=== PATIENT | female | born 1940 | race Caucasian/White ===

== ENCOUNTER 2016-09-28 18:46 | Emergency (ER) | payer MEDICARE, BC ==
[~2016-09-28] VITALS: Ht 160 cm; Wt 77.2 kg
[~2016-09-28 18:46] MED LIST: /METO25TAB PO; /PANT40TA PO; /WARF25TA PO; ALTA10CA3 PO; AMBIEN PO; CHLO25TA3 PO; DRON40TA PO; SIMV10TA2 PO; VITA-122 PO; [UNRECOGNIZED DRUG - CODE] PO
[2016-09-28] MEDS ORDERED: COUM2TAB22 PO (19:13)
[2016-09-28] MEDS ORDERED: ZOLO25TA PO (19:13)
[2016-09-28] MEDS ORDERED: LEVO25TA5 PO (19:13)
[2016-09-28] MEDS ORDERED: WARF4TAB52 PO (19:13)
[2016-09-28] MEDS ORDERED: FLEET OIL RETENTION ENEMA PR PRN (20:45)
[2016-09-28] MEDS ORDERED: MAGNESIUM CITRATE 300 ML BTL PO ONE (22:00)
[2016-09-28 22:06] VITALS: BP 121/60
== END 2016-09-28 22:23 | disposition home or self-care (01) ==
LOC: M ED 18:46
DX: K59.00 Constipation, unspecified (principal); F41.9 Anxiety disorder, unspecified; Z95.2 Presence of prosthetic heart valve; Z88.1 Allergy status to other antibiotic agents; Z88.8 Allergy status to other drugs, medicaments and biological substances; Z79.899 Other long term (current) drug therapy

== ENCOUNTER 2016-11-14 14:19 | Outpatient (RCR) | payer MEDICARE, BC ==
[~2016-11-14 14:19] MED LIST changes: +COUM2TAB22 PO; +LEVO25TA5 PO; +WARF4TAB52 PO; +ZOLO25TA PO
== END 2016-11-20 ==
LOC: M CR 14:19
PROVIDERS: ATTEND Internal Medicine Cardiovascular Disease
DX: Z51.89 Encounter for other specified aftercare (principal); I34.1 Nonrheumatic mitral (valve) prolapse

== ENCOUNTER 2016-12-19 11:02 | Outpatient (RCR) | payer MEDICARE, BC | END 2016-12-20 | LOC: M CR 11:02 | PROVIDERS: ATTEND Internal Medicine Cardiovascular Disease | DX: Z51.89 Encounter for other specified aftercare (principal); I34.1 Nonrheumatic mitral (valve) prolapse ==

== ENCOUNTER 2017-01-02 11:13 | Outpatient (RCR) | payer MEDICARE, BC | END 2017-01-20 | LOC: M CR 11:13 | PROVIDERS: ATTEND Internal Medicine Cardiovascular Disease | DX: Z51.89 Encounter for other specified aftercare (principal); I34.1 Nonrheumatic mitral (valve) prolapse; Z95.2 Presence of prosthetic heart valve ==

== ENCOUNTER → 2017-06-04 | Outpatient (CLI) | payer MEDICARE, BC | LOC: M WHC 11:25 | DX: Z12.31 Encounter for screening mammogram for malignant neoplasm of breast (principal) | CPT/HCPCS: 77067 ==

== ENCOUNTER 2017-12-17 09:51 | Day surgery (SDC) | payer MEDICARE, BC ==
[2017-12-17] MEDS: NS 1,000 ML IV (06:00)
[2017-12-17] MEDS ORDERED: PROPOFOL 200 MG/20 ML VIAL As Ordered ×2 (10:00→11:31)
[2017-12-17] MEDS ORDERED: LIDOCAINE 2% INJ 100 MG/5 ML SDV (FOR ANES.) As Ordered (10:02)
== END 2017-12-17 12:08 | disposition home or self-care (01) ==
LOC: M OPP 09:51
DX: R19.5 Other fecal abnormalities (principal); K57.30 Diverticulosis of large intestine without perforation or abscess without bleeding; Q43.8 Other specified congenital malformations of intestine; I48.91 Unspecified atrial fibrillation; I10 Essential (primary) hypertension; E78.5 Hyperlipidemia, unspecified; M19.90 Unspecified osteoarthritis, unspecified site; F32.9 Major depressive disorder, single episode, unspecified; F41.9 Anxiety disorder, unspecified; G47.30 Sleep apnea, unspecified; Z86.79 Personal history of other diseases of the circulatory system; Z85.820 Personal history of malignant melanoma of skin; Z88.1 Allergy status to other antibiotic agents; Z88.8 Allergy status to other drugs, medicaments and biological substances; Z79.01 Long term (current) use of anticoagulants; Z79.899 Other long term (current) drug therapy
CPT/HCPCS: 45378

== ENCOUNTER → 2017-12-26 | Outpatient (CLI) | payer MEDICARE, BC ==
[2017-12-26 19:33] LABS: BASO # 0.1 10^3/uL (0.0-0.2); BASO % 0.9 % (0.0-1.0); EOS # 0.2 10^3/uL (0.0-0.50); EOS % 3.4 % (0.0-3.0); HEMATOCRIT 38.5 % (36.0-47.0); HEMOGLOBIN 12.2 g/dl (12.0-15.5); IMMATURE GRANULOCYTE % 0.4 % (0-3.0); LYMPH # 1.4 10^3/uL (1.5-4.5); MEAN CORPUSCULAR HEMOGLOBIN 29.5 pg (27.0-33.0); MEAN CORPUSCULAR HGB CONC 31.7 g/dl (32.0-36.5); MONO # 0.8 10^3/uL (0.0-0.8); MONO % 14.3 % (0.0-5.0); NEUTROPHILS # 2.9 10^3/uL (1.8-7.7); PLATELET COUNT, AUTOMATED 261 10^3/uL (150-450); RED BLOOD COUNT 4.14 10^6/uL (4.00-5.40); RED CELL DISTRIBUTION WIDTH 12.7 % (11.5-14.5); WHITE BLOOD COUNT 5.3 10^3/uL (4.0-10.0)
[2017-12-26 19:51] LABS: ALBUMIN 3.8 GM/DL (3.2-5.2); ALBUMIN/GLOBULIN RATIO 1.12 (1.00-1.93); ALKALINE PHOSPHATASE 103 U/L (45-117); ALT/SGPT 23 U/L (12-78); ANION GAP 6 MEQ/L (8-16); AST/SGOT 18 U/L (7-37); BILIRUBIN,TOTAL 0.3 MG/DL (0.2-1.0); BLOOD UREA NITROGEN 20 MG/DL (7-18); CALCIUM LEVEL 8.8 MG/DL (8.8-10.2); CARBON DIOXIDE LEVEL 31 MEQ/L (21-32); CHLORIDE LEVEL 100 MEQ/L (98-107); CREATININE FOR GFR 0.79 MG/DL (0.55-1.30); GLOMERULAR FILTRATION RATE > 60.0 (>39); GLUCOSE, FASTING 84 MG/DL (70-100); NT-PRO BNP 260 PG/ML (<450); POTASSIUM SERUM 4.4 MEQ/L (3.5-5.1); SODIUM LEVEL 137 MEQ/L (136-145); TOTAL PROTEIN 7.2 GM/DL (6.4-8.2)
== END ==
LOC: M WUC 11:08
DX: M41.86 Other forms of scoliosis, lumbar region (principal); R06.02 Shortness of breath; Z95.0 Presence of cardiac pacemaker
CPT/HCPCS: 80053

== ENCOUNTER 2020-07-31 15:42 | Emergency (ER) | payer MEDICARE, BC ==
[~2020-07-31] VITALS: Ht 160 cm; Wt 81.8 kg
[~2020-07-31 15:42] MED LIST changes: -DILT180C28 PO
[2020-07-31 15:43] VITALS: BP 177/78
[2020-07-31] MEDS ORDERED: DILT180C28 PO (15:51)
== END 2020-07-31 18:56 | disposition left against medical advice (07) ==
LOC: M ED 15:42
DX: R05 Cough (principal); Z53.21 Procedure and treatment not carried out due to patient leaving prior to being seen by health care provider; R06.02 Shortness of breath; T17.208A Unspecified foreign body in pharynx causing other injury, initial encounter; Z79.01 Long term (current) use of anticoagulants; Z79.899 Other long term (current) drug therapy; Z88.1 Allergy status to other antibiotic agents; Z88.8 Allergy status to other drugs, medicaments and biological substances

== ENCOUNTER → 2020-07-31 | Outpatient (CLI) | payer MEDICARE, BC ==
[~2020-07-31] MED LIST changes: -/METO25TAB PO; -/PANT40TA PO; -/WARF25TA PO; +CHLO25TA PO; +COUM1TAB18 PO; +COUM1TAB19 PO; +DILT180C28 PO; +LOSA50TA88 PO; +METO1TAB87 PO; +MULTCAP PO; +PROT1TAB2 PO; +SPIR-10 PO; +ZOCO20TA PO
--- NOTE | 2020-07-31 15:47 | REP ---
INDICATION: SOB/WHEEZING ON EXAM, CHOKED ON LOSARTAN CAPSULE THIS AM. COMPARISON: 12/26/2017 TECHNIQUE: PA and lateral views FINDINGS: Cardiomediastinal silhouette is unchanged. The heart is not enlarged. Intracardiac device unchanged. Fibrotic changes seen throughout the lung sinha with basilar predominance which appears stable. No acute patchy parenchymal opacities or pleural effusions have developed. There is no change in the osseous structures. There is an old left humeral fracture. IMPRESSION: Chronic changes as described above. <Electronically signed by Frantz Zendejas > 07/31/20 [id number]
== END ==
LOC: M WUC 15:06
PROVIDERS: ATTEND Nurse Practitioner Family
DX: R06.2 Wheezing (principal); T17.208A Unspecified foreign body in pharynx causing other injury, initial encounter

== ENCOUNTER 2021-01-07 15:47 | Outpatient (CLI) | payer MEDICARE, BC ==
[~2021-01-07] VITALS: Ht 160 cm; Wt 78.9 kg
[~2021-01-07 15:47] MED LIST changes: +ALBUTEROL 90 MCG/ACT 8GM HFA INHALER INH PRN; +ALBUTEROL SULFATE 2.5 MG/0.5 ML INH NEB SOLN INH PRN; +DILT180C28 PO; +EPINEPHrine INJ 1 MG/ML 1ML AMP IM PRN; +NS 1,000 ML IV SCH; +diphenhydrAMINE 50MG/ML VIAL (J1200) IV PRN; +methylPREDNISolone 125MG 2ML VIAL IV PRN
[2021-01-07 16:10] VITALS: BP 161/70
[2021-01-07] MEDS ORDERED: BAMLANIVIMAB 700 MG, ETESEVIMAB 1,400 MG in NS 250 ML IV ONE (17:00)
[2021-01-07 17:50] VITALS: BP 168/72
[2021-01-07 18:20] VITALS: BP 165/83
[2021-01-07 18:55] VITALS: BP 156/80
== END 2021-01-07 19:10 | disposition home or self-care (01) ==
LOC: M OPCLI4PR 15:47
PROVIDERS: ATTEND Family Medicine
DX: U07.1 COVID-19 (principal); Z88.8 Allergy status to other drugs, medicaments and biological substances
CPT/HCPCS: 96361; M0245

== ENCOUNTER → 2021-01-28 | Outpatient (CLI) | payer MEDICARE, BC ==
[~2021-01-28] MED LIST changes: -ALBUTEROL 90 MCG/ACT 8GM HFA INHALER INH PRN; -ALBUTEROL SULFATE 2.5 MG/0.5 ML INH NEB SOLN INH PRN; -EPINEPHrine INJ 1 MG/ML 1ML AMP IM PRN; -NS 1,000 ML IV SCH; -diphenhydrAMINE 50MG/ML VIAL (J1200) IV PRN; -methylPREDNISolone 125MG 2ML VIAL IV PRN
--- NOTE | 2021-01-28 15:27 | REP ---
INDICATION: [facility] SCREEN MAMMO FOR MALIGNANT NEOPLASM OF BREAST. COMPARISON: 06/04/2017 as well as other prior exams. TECHNIQUE: MLO and CC views bilateral breasts with tomosynthesis. FINDINGS: Moderate fibroglandular tissue is again noted bilaterally. There is no mass or architectural distortion. Tiny calcifications are clustered in the inferolateral right breast. Tiny calcific densities are also seen in the inferomedial right breast posteriorly. These are only seen in the CC projection. The Volpara volumetric breast density pattern is B. IMPRESSION: BIRADS/ACR category 0, incomplete. Two areas of clustered tiny calcifications in the right breast, laterally and medially. Recommend magnification views to further evaluate. This patient's Tyrer-Cuzick lifetime breast cancer risk assessment score is 2.4%. This mammogram was interpreted with the aid of an FDA-approved computer-aided detection system. The patient states she had a clinical breast exam in over 1 year ago. The patient letter being requested is M0. RECOMMENDATION: Recommend magnification views right breast as discussed above. <Electronically signed by Geovanny Monahan > 01/28/21 [id number]
== END ==
LOC: M WHC 13:50
PROVIDERS: ATTEND Family Medicine
DX: Z12.31 Encounter for screening mammogram for malignant neoplasm of breast (principal)

== ENCOUNTER → 2021-02-13 | Outpatient (CLI) | payer MEDICARE, BC ==
--- NOTE | 2021-02-13 12:18 | REP ---
INDICATION: RIGHT BREAST ADD VIEWS. COMPARISON: 01/28/2021, 06/04/2017, 09/03/2015. TECHNIQUE: Multiple additional views are performed including magnification and tomographic sequences. FINDINGS: There is a focal cluster of pleomorphic microcalcifications in the inferolateral right breast for which stereotactic biopsy is recommended. The tiny densities medially in the right breast are associated with an adjacent surgical scar and are stable since 2018, consistent with postsurgical change. IMPRESSION: BIRADS/ACR category 4, suspicious. Focal cluster of pleomorphic microcalcifications in the inferolateral right breast. Recommend stereotactic biopsy. This mammogram was interpreted with the aid of an FDA-approved computer-aided detection system. The patient letter being requested is M4. RECOMMENDATION: Recommend stereotactic biopsy right breast as discussed above. <Electronically signed by Geovanny Monahan > 02/13/21 [id number]
== END ==
LOC: M WHC 10:46
PROVIDERS: ATTEND Family Medicine
DX: R92.0 Mammographic microcalcification found on diagnostic imaging of breast (principal)
CPT/HCPCS: 77065; G0279

== ENCOUNTER → 2022-11-10 | Outpatient (CLI) | payer MEDICARE, BC ==
[~2022-11-10] MED LIST changes: +LOSA50TA28 PO; -LOSA50TA88 PO; +SIMV-253 PO; -ZOCO20TA PO
== END ==
LOC: M WUC 15:25
PROVIDERS: ATTEND Family Medicine
DX: R05.9 Cough, unspecified (principal)